=== PATIENT | male | born 1935 | race Caucasian/White ===

== ENCOUNTER 2017-03-09 14:50 | Emergency (ER) | payer OTHER, MEDICARE, BC ==
[~2017-03-09] VITALS: Ht 170.2 cm; Wt 66.7 kg
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
[2017-03-09] MEDS ORDERED: HYDROcodone/APAP 5/325MG 1 TAB TABLET PO ONE (16:00)
[2017-03-09] MEDS ORDERED: TRAM-48 PO (16:58)
[2017-03-09 17:00] VITALS: BP 137/78
== END 2017-03-09 17:12 | disposition home or self-care (01) ==
LOC: ER 14:50
DX: S22.31XA Fracture of one rib, right side, initial encounter for closed fracture (principal); G43.909 Migraine, unspecified, not intractable, without status migrainosus; I25.10 Atherosclerotic heart disease of native coronary artery without angina pectoris; F17.210 Nicotine dependence, cigarettes, uncomplicated; V89.2XXA Person injured in unspecified motor-vehicle accident, traffic, initial encounter; Y93.89 Activity, other specified; Y99.8 Other external cause status; Y92.488 Other paved roadways as the place of occurrence of the external cause
CPT/HCPCS: 70450; 71101; 72125; 99284-25

== ENCOUNTER 2017-11-09 12:23 | Inpatient (IN) | payer MEDICARE, BC ==
[~2017-11-09] VITALS: Ht 170.2 cm; Wt 62.7 kg
[2017-11-09] VITALS (14 sets, daily range): BP systolic 118–148; BP diastolic 59–70
[~2017-11-09 12:23] MED LIST: TRAM-48 PO
[2017-11-09 13:39] LABS: BASO % 1 % (0-3); EOS % 1 % (0-3); LYMPH # 0.7 x10^3/uL (1.0-4.8); LYMPH % 14 % (24-48); MEAN CORPUSCULAR HEMOGLOBIN 17 pg (25-35); MEAN CORPUSCULAR HGB CONC 29 g/dL (31-37); MEAN CORPUSCULAR VOLUME 61 fL (79-100); MONO # 0.3 x10^3/uL (0.0-1.1); MONO % 6 % (0-9); NEUT # 3.8 x10^3uL (1.8-7.7); NEUT % 79 % (31-73); PLATELET COUNT 215 x10^3/uL (140-400); RED BLOOD COUNT 2.66 x10^6/uL (4.30-5.70); RED CELL DISTRIBUTION WIDTH 20.4 % (11.5-14.5); WHITE BLOOD COUNT 4.9 x10^3/uL (4.0-11.0)
[2017-11-09 13:52] LABS: ALBUMIN 3.5 g/dL (3.4-5.0); ALBUMIN/GLOBULIN RATIO 1.1 (1.0-1.7); CALCIUM 8.4 mg/dL (8.5-10.1); CREATININE 1.1 mg/dL (0.7-1.3); GFR 64.2; HEMATOCRIT 16.1 % (39.0-53.0); HEMOGLOBIN 4.6 g/dL (13.0-17.5); POTASSIUM 4.1 mmol/L (3.5-5.1); TOTAL BILIRUBIN 0.3 mg/dL (0.2-1.0); TOTAL PROTEIN 6.7 g/dL (6.4-8.2)
[2017-11-09] MEDS ORDERED: IOHEXOL 240 MG/ML 50ML VIAL. ONE (13:58)
[2017-11-09] MEDS ORDERED: traMADol 50 MG TABLET PO PRN (14:00)
[2017-11-09] MEDS ORDERED: IOHEXOL 300 MG/ML 75 ML VIAL. IV ONE (14:30)
[2017-11-09 14:44] LABS: HYPOCHROMIA MOD; PLT ESTIMATE ADEQUATE (ADEQUATE)
[2017-11-09 14:49] LABS: ANISOCYTOSIS MOD; MICROCYTOSIS MOD
[2017-11-09 14:56] LABS: OVALOCYTES FEW; POLYCHROMASIA PRESENT
[2017-11-09 14:57] LABS: TEAR DROP CELLS FEW
[2017-11-09 14:59] LABS: TARGET CELLS OCC
[2017-11-09 15:09] LABS: STOMATOCYTES OCC
[2017-11-09 15:10] LABS: SCHISTOCYTES OCC
[2017-11-09 15:18] LABS: POIKILOCYTOSIS PRESENT
[2017-11-09] MEDS: PANTOPRAZOLE IV 80 MG in IV NORMAL SALINE 100ML 100 ML IV SCH ×2 (15:34→23:57)
[2017-11-09] MEDS: IV NORMAL SALINE 1,000ML 1,000 ML IV SCH (15:35)
[2017-11-09 15:44] LABS: BACTERIA,URINE 0 /HPF (0-FEW); BILIRUBIN,URINE NEG (NEG); CLARITY,URINE CLEAR; COLOR,URINE STRAW; GLUCOSE,URINE NEG (NEG); NITRITE,URINE NEG (NEG); RBC,URINE OCC /HPF (0-2); SQUAMOUS EPITHELIAL CELL,UR OCC /LPF; UROBILINOGEN,URINE 0.2 mg/dL (0.2 mg/dL); WBC,URINE OCC /HPF (0-4)
[2017-11-09 15:45] LABS: HYALINE CASTS, URINE FEW /HPF
[2017-11-09] MEDS ORDERED: FURO-68 PO (16:10)
[2017-11-09] MEDS ORDERED: MULT-475 PO (16:10)
[2017-11-09] MEDS ORDERED: OXYC-327 PO (16:10)
[2017-11-09] MEDS ORDERED: CETI10TA22 PO (16:10)
[2017-11-09] MEDS ORDERED: TAMS0.4C97 PO (16:10)
--- NOTE | 2017-11-09 16:53 | RAD ---
CT abdomen/pelvis with IV and oral contrast CLINICAL HISTORY: GI BLEED, ABDOMINAL PAIN COMPARISON: none TECHNIQUE: CT of the abdomen and pelvis following the administration of 75 mL of Omnipaque 300 intravenous contrast. Oral contrast was administered. Coronal and sagittal reformatted images were generated. ---PQRS compliance statement - One or more of the following individualized dose reduction techniques were utilized for this study: 1. Automated exposure control 2. Adjustment of the mA and/or kV according to patient size 3. Use of iterative reconstruction technique--- FINDINGS: Of note, exam is somewhat limited given motion artifact within the mid-lower abdomen. Dependent opacities are seen in the lung bases likely atelectasis or consolidation. Mild emphysematous changes are seen. ABDOMEN AND PELVIS: No focal liver lesion. The gallbladder is unremarkable. No intra or extrahepatic biliary ductal dilatation. The spleen is unremarkable. Nodular thickening of the left adrenal gland is seen. The right adrenal gland is unremarkable. The pancreas is unremarkable. Symmetric nephrograms. No focal renal lesion. Bilateral extrarenal pelves are seen. No hydronephrosis or hydroureter. No abdominal or pelvic lymphadenopathy. No abdominal or pelvic ascites. Colonic stool content. The appendix is normal. No abnormal small or large bowel dilatation to suggest bowel obstruction. Colonic diverticulosis is seen without evidence for acute diverticulitis. Oral contrast material makes it to the distal small bowel. The prostate is mildly enlarged measuring 5 cm in transverse dimension. Thickening of the bladder wall possibly from chronic outlet obstruction. Decreased mineral density. Visualized osseous structures are grossly unremarkable. IMPRESSION: 1. Lung base opacities, possibly atelectasis or developing consolidation. 2. No evidence of bowel obstruction. 3. Colonic diverticulosis without evidence of acute diverticulitis. 4. Thickening of the bladder wall likely from chronic outlet obstruction given enlarged prostate. 5. Evaluation for GI bleed is limited on this exam. Electronically signed by: Kushal Abel MD (11/09/2017 4:49 PM) [facility]
--- NOTE | 2017-11-09 17:59 | RAD ---
CHEST PA LATERAL History: SHORT OF AIR Comparison: PA chest March 09, 2017. Findings: The cardiomediastinal silhouette is normal. Pulmonary vasculature is normal. Linear opacities in the bilateral lung bases may be discoid atelectasis or scarring or early infiltrate. No pleural effusion or pneumothorax is seen. There is no acute bone abnormality. Diffuse demineralization. IMPRESSION: Bibasilar linear airspace opacities. Electronically signed by: Kobi Bower MD (11/09/2017 5:55 PM) [id number]
[2017-11-10] VITALS (17 sets, daily range): BP systolic 107–161; BP diastolic 43–70
[2017-11-10 00:08] LABS: HEMATOCRIT 23.8 % (39.0-53.0); HEMOGLOBIN 7.3 g/dL (13.0-17.5)
[2017-11-10] MEDS: IV NORMAL SALINE 1,000ML 1,000 ML IV SCH ×2 (04:29→20:54)
[2017-11-10] MEDS ORDERED: oxyCODONE/APAP 7.5/325 1 TAB TABLET PO PRN ×2 (06:30→09:00)
[2017-11-10 06:34] LABS: BASO % 1 % (0-3); EOS % 1 % (0-3); HEMATOCRIT 22.7 % (39.0-53.0); HEMOGLOBIN 7.1 g/dL (13.0-17.5); LYMPH % 16 % (24-48); MEAN CORPUSCULAR HEMOGLOBIN 21 pg (25-35); MEAN CORPUSCULAR HGB CONC 31 g/dL (31-37); MEAN CORPUSCULAR VOLUME 66 fL (79-100); MONO # 0.4 x10^3/uL (0.0-1.1); MONO % 6 % (0-9); NEUT # 4.9 x10^3uL (1.8-7.7); NEUT % 76 % (31-73); PLATELET COUNT 214 x10^3/uL (140-400); RED BLOOD COUNT 3.45 x10^6/uL (4.30-5.70); WHITE BLOOD COUNT 6.4 x10^3/uL (4.0-11.0)
[2017-11-10 06:45] LABS: CALCIUM 8.4 mg/dL (8.5-10.1); CREATININE 0.8 mg/dL (0.7-1.3); GFR 92.8; POTASSIUM 3.9 mmol/L (3.5-5.1)
[2017-11-10] MEDS: FUROSEMIDE 40 MG TABLET PO SCH (09:09)
[2017-11-10] MEDS: TAMSULOSIN 0.4 MG CAP.ER.24H. PO SCH (09:09)
[2017-11-10] MEDS: MULTIVITAMIN with MINERAL TABLET. PO SCH (09:09)
[2017-11-10 09:40] LABS: FECAL OB PT POSITIVE (NEG)
[2017-11-10] MEDS: SUCRALFATE 1 GM/10 ML ORAL.SUSP. PO SCH ×3 (11:15→20:54)
[2017-11-10] MEDS: LACTOBACILLUS RHAMNOSUS GG 1 CAPSULE. PO SCH ×2 (11:15→20:54)
--- NOTE | 2017-11-10 12:12 | RAD ---
Ultrasound venous Doppler INDICATION:CALF SWELLING TECHNIQUE: Grayscale, color Doppler and spectral waveform ultrasound images of the bilateral lower extremities deep veins obtained. COMPARISON: None FINDINGS: The interrogated deep veins are compressible and demonstrate evidence of blood flow with normal respiratory variation and response to augmentation. IMPRESSION: No sonographic evidence of acute DVT of the bilateral lower extremity deep veins. Electronically signed by: Francis Alonzo DO (11/10/2017 12:09 PM) [facility]
[2017-11-10 15:35] LABS: HEMATOCRIT 24.3 % (39.0-53.0); HEMOGLOBIN 7.4 g/dL (13.0-17.5); RED BLOOD COUNT 3.65 x10^6/uL (4.30-5.70); RED CELL DISTRIBUTION WIDTH 25.6 % (11.5-14.5); WHITE BLOOD COUNT 5.9 x10^3/uL (4.0-11.0)
[2017-11-10] MEDS: oxyCODONE/APAP 7.5/325 1 TAB TABLET PO PRN (21:10)
--- NOTE | 2017-11-10 21:57 | PN ---
DATE: 11/10/2017 SUBJECTIVE: An 82-year-old male came in with profound anemia. Did a rectal exam on him that was positive. OBJECTIVE: VITAL SIGNS: Basically stable, presently 114/40, respiratory rate 20, pulse 80, afebrile. GENERAL: The patient is alert and oriented. The patient states he wants to go home. The patient's hemoglobin went from 4.6 up to 7.1. Repeating that here, we will see what that does after 2 units of packed RBCs. LUNGS: Clear. CARDIOVASCULAR: Stable. ABDOMEN: Soft, nontender. The patient is not having any bowel movements. The patient was Hemoccult positive, but no melena was noted. The patient otherwise will continue on IV antibiotic therapy as his chest x-ray showed the possibility of an infiltrative process noted as well or early infiltrate. We will continue to monitor. Discussed with the , she is agreeable with the protocol and will continue to be monitored carefully. The patient also had a positive D-dimer and there is no evidence of DVT to be put on SCD protocol for his prevention of DVT. IMPRESSION: Acute gastrointestinal bleed, generalized weakness. PLAN: As above. Continue to monitor accordingly. NEEMA GARCIA MD DR: KATIANA/davey JOB#: [id number] / [id number]
[2017-11-11] VITALS (9 sets, daily range): BP systolic 123–137; BP diastolic 57–68
--- NOTE | 2017-11-11 02:07 | PN ---
DATE: 11/10/2017 SUBJECTIVE: The patient feels much better today. The patient seems to be doing overall much better. OBJECTIVE: VITAL SIGNS: The patient's blood pressure 114/43, respiratory rate 20, pulse 80, afebrile. GENERAL: The patient is alert and oriented, wanted to eat. LUNGS: The patient's lungs are clear. CARDIOVASCULAR: Stable. ABDOMEN: Soft, nontender. LABORATORY DATA: The patient's hemoglobin has remained stable and actually has gone up some to 7.4 and 24. PLAN: Continues on present drug regimen. We will repeat his H and H in the morning and make further evaluation once that has been performed. Dopplers of his legs have been negative. NEEMA GARCIA MD DR: KATIANA/davey JOB#: [id number] / [id number]
[2017-11-11 06:52] LABS: CALCIUM 8.4 mg/dL (8.5-10.1); GFR 71.7; POTASSIUM 3.9 mmol/L (3.5-5.1)
[2017-11-11 07:17] LABS: BASO # 0.1 x10^3/uL (0.0-0.2); BASO % 1 % (0-3); EOS # 0.1 x10^3/uL (0.0-0.7); EOS % 1 % (0-3); HEMOGLOBIN 7.3 g/dL (13.0-17.5); LYMPH # 0.9 x10^3/uL (1.0-4.8); LYMPH % 14 % (24-48); MEAN CORPUSCULAR HEMOGLOBIN 21 pg (25-35); MEAN CORPUSCULAR HGB CONC 30 g/dL (31-37); MEAN CORPUSCULAR VOLUME 68 fL (79-100); MONO # 0.4 x10^3/uL (0.0-1.1); MONO % 6 % (0-9); NEUT % 78 % (31-73); PLATELET COUNT 202 x10^3/uL (140-400); RED BLOOD COUNT 3.56 x10^6/uL (4.30-5.70); RED CELL DISTRIBUTION WIDTH 26.1 % (11.5-14.5); WHITE BLOOD COUNT 6.4 x10^3/uL (4.0-11.0)
[2017-11-11] MEDS: FUROSEMIDE 40 MG TABLET PO SCH (08:53)
[2017-11-11] MEDS: TAMSULOSIN 0.4 MG CAP.ER.24H. PO SCH (08:53)
[2017-11-11] MEDS: MULTIVITAMIN with MINERAL TABLET. PO SCH (08:53)
[2017-11-11] MEDS: LACTOBACILLUS RHAMNOSUS GG 1 CAPSULE. PO SCH ×2 (08:53→20:33)
[2017-11-11] MEDS: PANTOPRAZOLE 40 MG TABLET. PO SCH (08:53)
[2017-11-11] MEDS: SUCRALFATE 1 GM/10 ML ORAL.SUSP. PO SCH ×4 (08:53→20:33)
[2017-11-11] MEDS ORDERED: cefTRIAXone IV Push 1 GM VIAL. IVP SCH (10:00)
[2017-11-11] MEDS: IV NORMAL SALINE 1,000ML 1,000 ML IV SCH ×2 (12:10→19:20)
[2017-11-11] MEDS: oxyCODONE/APAP 7.5/325 1 TAB TABLET PO PRN (20:48)
--- NOTE | 2017-11-11 20:54 | PN ---
DATE: 11/11/2017 SUBJECTIVE: An 82-year-old gentleman with acute apparently GI bleed, although presently he is more stable. He is still pretty weak on his feet, receiving PT, OT. OBJECTIVE: VITAL SIGNS: The patient's blood pressure 123/68, which is somewhat of a drop from his lying position, pulse 80, afebrile. GENERAL: The patient is alert. The patient is still fairly weak, needing some assistance to walk around. LUNGS: Diminished, but clear. CARDIOVASCULAR: Regular sinus rhythm. ABDOMEN: Soft, diffuse tenderness, but no rebound or guarding. No melanotic stools noted. LABORATORY DATA: The patient's hemoglobin is stable at 7.3 and 24. PLAN: We will continue to monitor the patient accordingly and hopefully ready for discharge in the a.m. NEEMA GARCIA MD DR: KATIANA/davey JOB#: [id number] / [id number]
[2017-11-12] MEDS: oxyCODONE/APAP 7.5/325 1 TAB TABLET PO PRN (05:03)
[2017-11-12 05:30] VITALS: BP 133/64
[2017-11-12 06:46] LABS: BASO % 0 % (0-3); EOS # 0.1 x10^3/uL (0.0-0.7); EOS % 2 % (0-3); HEMATOCRIT 23.1 % (39.0-53.0); HEMOGLOBIN 7.1 g/dL (13.0-17.5); LYMPH # 0.9 x10^3/uL (1.0-4.8); LYMPH % 14 % (24-48); MEAN CORPUSCULAR HEMOGLOBIN 21 pg (25-35); MEAN CORPUSCULAR HGB CONC 31 g/dL (31-37); MEAN CORPUSCULAR VOLUME 67 fL (79-100); MONO # 0.4 x10^3/uL (0.0-1.1); MONO % 7 % (0-9); NEUT % 76 % (31-73); PLATELET COUNT 185 x10^3/uL (140-400); RED BLOOD COUNT 3.44 x10^6/uL (4.30-5.70); RED CELL DISTRIBUTION WIDTH 26.5 % (11.5-14.5); WHITE BLOOD COUNT 6.5 x10^3/uL (4.0-11.0)
[2017-11-12] MEDS: SUCRALFATE 1 GM/10 ML ORAL.SUSP. PO SCH (07:37)
[2017-11-12] MEDS: PANTOPRAZOLE 40 MG TABLET. PO SCH (07:37)
[2017-11-12] MEDS: TAMSULOSIN 0.4 MG CAP.ER.24H. PO SCH (08:19)
[2017-11-12] MEDS: LACTOBACILLUS RHAMNOSUS GG 1 CAPSULE. PO SCH (08:19)
[2017-11-12] MEDS: MULTIVITAMIN with MINERAL TABLET. PO SCH (08:19)
[2017-11-12] MEDS: FUROSEMIDE 40 MG TABLET PO SCH (08:20)
[2017-11-12] MEDS ORDERED: SUCR1ORA5 PO (09:42)
[2017-11-12] MEDS ORDERED: PANT40TA5 PO (09:42)
--- NOTE | 2017-11-12 10:02 | DS ---
DATE OF DISCHARGE: HOSPITAL COURSE: An 82-year-old gentleman came in with generalized weakness; was seen as an outpatient, refused to come in to the hospital initially. His hemoglobin when he first came in was 4.6 and 16, received 2 units packed RBCs and came up into a hemoglobin of 7.3 and 24. The patient made good progress during the rest of his hospitalization and there were no complications noted. He did have a positive Hemoccult stool, but had no acute signs of bleeding. As a result of this, the patient made good progress during the rest of his hospitalization and will be placed on iron. 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 He did have a positive D-dimer, but scans were negative. Ultrasounds were negative. It was probably related to his intestinal problems. He had no other signs. No chest pain or shortness of breath. The patient was also noted to show possible early infiltrate. He is a smoker. He has been encouraged to stop smoking obviously. IMPRESSION: Acute gastrointestinal bleed, emphysema, iron deficiency anemia secondary to acute bleed. He had O positive blood. Hypocalcemia. PLAN: The patient will be discharged, follow up in a week with me and then also with his GI specialist. NEEMA GARCIA MD DR: KATIANA/davey JOB#: [id number] / [id number]
== END 2017-11-12 10:40 | disposition home or self-care (01) | DRG 378 ==
LOC: 1 SOUTH 12:23 → ICU 19:24 → 1 SOUTH 11-11 12:04
PROVIDERS: ADMIT Family Medicine; ATTEND Family Medicine
PROC: 30233N1 Transfusion of Nonautologous Red Blood Cells into Peripheral Vein, Percutaneous Approach (ICD-10-PCS; principal; 2017-11-09)
DX: K92.2 Gastrointestinal hemorrhage, unspecified (principal); D62 Acute posthemorrhagic anemia; E83.51 Hypocalcemia; J43.9 Emphysema, unspecified; F17.200 Nicotine dependence, unspecified, uncomplicated; R91.8 Other nonspecific abnormal finding of lung field
CPT/HCPCS: 36415; 71046; 74177; 80048; 80053; 81001; 82274; 82436; 82550; 82607; 83605; 84133; 84300; 84443; 84466; 84484; 85014; 85018; 85025; 85027; 85379; 85610; 85730; 86850; 86900; 86901; 86920; 87641; 93970; C9113; J0696; J1956; P9016; Q9967; J7030

== ENCOUNTER → 2019-05-27 | Outpatient (CLI) | payer MEDICARE, BC ==
[~2019-05-27] MED LIST changes: +CETI10TA24 PO; +FURO-68 PO; +MULT-475 PO; +OXYC1TAB19 PO; +PANT40TA5 PO; +SUCR1ORA5 PO; +TAMS0.4C97 PO
[2019-05-27 11:37] LABS: BASO % 1 % (0-3); EOS # 0.1 x10^3/uL (0.0-0.7); EOS % 2 % (0-3); LYMPH # 0.8 x10^3/uL (1.0-4.8); LYMPH % 15 % (24-48); MEAN CORPUSCULAR HEMOGLOBIN 26 pg (25-35); MEAN CORPUSCULAR HGB CONC 31 g/dL (31-37); MEAN CORPUSCULAR VOLUME 84 fL (79-100); MONO # 0.4 x10^3/uL (0.0-1.1); MONO % 7 % (0-9); NEUT # 4.1 x10^3uL (1.8-7.7); NEUT % 75 % (31-73); PLATELET COUNT 226 x10^3/uL (140-400); RED BLOOD COUNT 3.82 x10^6/uL (4.30-5.70); RED CELL DISTRIBUTION WIDTH 14.6 % (11.5-14.5); WHITE BLOOD COUNT 5.4 x10^3/uL (4.0-11.0)
[2019-05-27 11:38] LABS: CALCIUM 8.6 mg/dL (8.5-10.1); GFR 71.5; POTASSIUM 4.3 mmol/L (3.5-5.1)
--- NOTE | 2019-05-27 16:20 | RAD ---
CHEST PA LATERAL Clinical indications: Enlarged lymph nodes. COMPARISON: November 09, 2017. Findings: Chronic interstitial lung disease is seen bilaterally chronic hyperinflation consistent with COPD. No new lung infiltrate or pleural effusion or pulmonary edema or lung mass or pneumothorax is seen. The heart size, pulmonary vasculature, mediastinum and both tremaine are unremarkable. The osseous structures appear intact. Impression: COPD No new radiographic abnormality is seen. Electronically signed by: Hasmukh Kimball MD (05/27/2019 4:17 PM) [facility] [place]
--- NOTE | 2019-05-27 16:31 | RAD ---
CT CHEST WO CONTRAST Indication: Enlarged lymph nodes, smoker for 65 years Technique: Noncontrast CT imaging was performed of the chest, multiplanar reconstruction images submitted. One or more of the following individualized dose reduction techniques were utilized for this examination: 1. Automated exposure control 2. Adjustment of the mA and/or kV according to patient size 3. Use of iterative reconstruction technique. Comparison: There is no previous dedicated chest CT available, correlation made with the limited visualized lung bases on CT abdomen exam November 09, 2017 Findings: There is a round noncalcified mass of the anterior, medial aspect of the right upper lobe abutting the pleural surface such as seen image 30 series 2 about 1.9 cm AP by 1.7 cm transverse by 1.9 cm cc. There is severe emphysema with upper zone predominance. There are a few other small noncalcified right upper lobe nodules, largest posteriorly 0.4 cm image 45 series 2. There are some noncalcified foci of nodularity of the right lower lobe, one of the largest image 64 series 2 about 0.9 cm. There is small focus of thickening along the minor fissure although more flattened appearance on the sagittal images. There are some small left lower lobe nodules, more discrete nodule image 56 series 2 about 0.4 cm. There are some small left upper lobe nodules, largest about 0.3 cm image 30. There is persistent areas of groundglass density of the lower lobes bilaterally, not fully included previously to accurately evaluate for degree of change. There is some density in the trachea and mainstem bronchus more likely due to mucus. There is a faint lytic focus posteriorly of the T7 vertebral body otherwise difficult to characterize etiology. There is no pleural pericardial fluid or pneumothorax. There is prominent coronary calcification. Thoracic aortic caliber is within normal limits. There are some subcentimeter mediastinal nodes, no significantly enlarged nodes identified. Largest nodes lateral to the left mainstem bronchus measures about 1 cm short axis dimension. There is heterogeneity of the thyroid gland, likely hypodense nodule posteriorly of the right 1.2 cm AP. There is a 1.7 cm exophytic focus of density arising from the superior left kidney, density measurements greater than a simple cyst about 25 Hounsfield units although size is similar. IMPRESSION: 1. There is a noncalcified right upper lobe mass concerning for neoplasm until proven otherwise for which PET CT is advised. There are multiple other small noncalcified pulmonary nodules. There is emphysema. 2. There is coronary calcification. 3. There is again exophytic focus of density of the superior left kidney, density measurements greater than simple cyst although size is similar to previous 2018 CT abdomen exam. Electronically signed by: Thuan Joshi MD (05/27/2019 4:28 PM) [id number]
== END | disposition home or self-care (01) ==
LOC: CT 09:59
PROVIDERS: ATTEND Family Medicine
DX: J84.9 Interstitial pulmonary disease, unspecified (principal); J44.9 Chronic obstructive pulmonary disease, unspecified
CPT/HCPCS: 36415; 71046; 71250; 80048; 85025

== ENCOUNTER → 2019-08-15 | Outpatient (CLI) | payer MEDICARE, BC ==
--- NOTE | 2019-08-15 09:49 | RAD ---
CT HEAD WO CONTRAST History: Right lung mass, headache Comparison: March 09, 2017 Technique: Noncontrast CT imaging was performed of the head. Exposure: One or more of the following individualized dose reduction techniques were utilized for this examination: 1. Automated exposure control 2. Adjustment of the mA and/or kV according to patient size 3. Use of iterative reconstruction technique. Findings: There is no evidence of acute intracranial hemorrhage. There is no new intra-axial mass effect or midline shift. Cash-white differentiation of the major vascular territories is maintained. There is mild generalized supratentorial involutional change. Visualized paranasal sinuses and mastoid air cells are aerated. There is some atherosclerotic calcification of the carotid siphons. Impression: 1. No acute intracranial abnormality is identified. Electronically signed by: Thuan Joshi MD (08/15/2019 9:46 AM) [id number]
--- NOTE | 2019-08-15 10:08 | RAD ---
CT CHEST WO CONTRAST Indication: Right lung mass Technique: Noncontrast CT imaging was performed of the chest, multiplanar reconstruction images submitted. One or more of the following individualized dose reduction techniques were utilized for this examination: 1. Automated exposure control 2. Adjustment of the mA and/or kV according to patient size 3. Use of iterative reconstruction technique. Comparison: May 27, 2019 Findings: There is a larger noncalcified mass of the anterior, medial right hemithorax of the right upper lobe with abutment of the pleural surface and apparent involvement of the anterior mediastinum. This measures about 3.1 cm AP by about 3 cm transverse by 3.4 cm CC versus previously about 2 cm AP by 1.8 cm transverse by 2 cm cc in similar measurement planes. Subtle 0.4 cm nodule along the right major fissure image 47 series 2 is similar. Some tiny foci of left lower lobe nodularity such as seen images 50 and 51 are similar. There are also some other scattered small left upper and left lower lobe nodules fairly similar. There is a subsolid lingular nodule about 0.9 cm image 78 series 2 somewhat larger as previously about 0.7 cm. There are also some foci of nodularity of the right lower lobe, largest about 0.7 cm image 61 overall similar. There are some areas of groundglass density lower lobes bilaterally as seen previously, also of the right middle lobe near base. There is emphysema with upper zone predominance. There are some subcentimeter mediastinal nodes as seen previously. There is prominent coronary calcification. Thoracic aortic caliber is within normal limits, scattered plaque present. There is again some heterogeneity of the thyroid gland and posterior right thyroid nodule. There is some fullness of the left adrenal gland, similar. There is again focus of exophytic density arising from the superior left kidney similar in size about 1.7 cm, density measurements again greater than a simple cyst about 22 Hounsfield units. Thoracic vertebral body stature is similar. IMPRESSION: 1. Previously seen noncalcified mass of the anteromedial right hemithorax is larger, involvement of the anterior mediastinum, again concerning for malignancy. Subsolid lingular nodule is larger. Other small pulmonary nodules are similar. 2. There is emphysema. There is coronary calcification. 3. There is again indeterminate lesion arising from the superior left kidney although similar compared with older exam. Electronically signed by: Thuan Joshi MD (08/15/2019 10:05 AM) [id number]
== END | disposition home or self-care (01) ==
LOC: CT 09:21
PROVIDERS: ATTEND Internal Medicine Pulmonary Disease
DX: R91.8 Other nonspecific abnormal finding of lung field (principal); E04.1 Nontoxic single thyroid nodule; J43.9 Emphysema, unspecified; I25.10 Atherosclerotic heart disease of native coronary artery without angina pectoris; I70.0 Atherosclerosis of aorta; N28.1 Cyst of kidney, acquired; I65.29 Occlusion and stenosis of unspecified carotid artery
CPT/HCPCS: 70450; 71250

== ENCOUNTER 2019-10-16 09:21 | Inpatient (IN) | payer MEDICARE, BC ==
[2019-10-16] VITALS (9 sets, daily range): BP systolic 108–123; BP diastolic 60–72
[~2019-10-16] VITALS: Ht 167.6 cm; Wt 60.5 kg
[2019-10-16] MEDS ORDERED: CEPH-264 PO (10:46)
--- NOTE | 2019-10-16 10:46 | PHYS DOC ---
Past History Past Medical History: CAD, Migraines Past Surgical History: Other Smoking: Cigarettes, Greater than 1 pack/day Alcohol Use: None Drug Use: None General Adult EDM: Chief Complaint: LOWER EXTREMITY SWELLING HPI: HPI: 83-year-old male presents with bilateral lower extremity redness and swelling. The swelling started within the last week. He saw his primary care physician few days ago who placed him on Lasix. He has been taking this. He presents with his daughter today with concern that the legs seem more red and the swelling is worse not better. She is concerned about cellulitis. Patient states it has been more difficult to walk yesterday and today was quite painful. He has not had a fever at home. He is very hard of hearing. Review of Systems: Review of Systems: Constitutional: Denies fever or chills Eyes: Denies change in visual acuity HENT: Denies nasal congestion or sore throat Respiratory: Denies cough or shortness of breath Cardiovascular: Denies chest pain or edema GI: Denies abdominal pain, nausea, vomiting, bloody stools or diarrhea : Denies dysuria Musculoskeletal: Denies back pain or joint pain Integument: Cellulitis of the bilateral lower extremities Neurologic: Denies headache, focal weakness or sensory changes Endocrine: Denies polyuria or polydipsia Lymphatic: Denies swollen glands Psychiatric: Denies depression or anxiety Heart Score: Risk Factors: Risk Factors: DM, Current or recent (<one month) smoker, HTN, HLP, family history of CAD, obesity. Risk Scores: Score 0 - 3: 2.5% MACE over next 6 weeks - Discharge Home Score 4 - 6: 20.3% MACE over next 6 weeks - Admit for Clinical Observation Score 7 - 10: 72.7% MACE over next 6 weeks - Early Invasive Strategies Allergies: Allergies: Allergies Coded Allergies Type Severity Reaction Last Updated Verified No Known Drug Allergies 03/09/17 No Physical Exam: PE: Constitutional: Well developed, well nourished, no acute distress, non-toxic appearance. [] HENT: Normocephalic, atraumatic, bilateral external ears normal, oropharynx moist, no oral exudates, nose normal. [] Eyes: PERRLA, EOMI, conjunctiva normal, no discharge. [] Neck: Normal range of motion, no tenderness, supple, no stridor. [] Cardiovascular:Heart rate regular rhythm, no murmur [] Lungs & Thorax: Bilateral breath sounds clear to auscultation [] Abdomen: Bowel sounds normal, soft, no tenderness, no masses, no pulsatile masses. [] Skin: Erythema, warmth, edema of the bilateral lower extremities up to the knee. Concerning for cellulitis. [] Back: No tenderness, no CVA tenderness. [] Extremities: No tenderness, no cyanosis, no clubbing, ROM intact, no edema. [] Neurologic: Alert and oriented X 3, normal motor function, normal sensory function, no focal deficits noted. [] Psychologic: Affect normal, judgement normal, mood normal. [] EKG: EKG: [] Radiology/Procedures: Radiology/Procedures: [] Course & Med Decision Making: Course & Med Decision Making Pertinent Labs and Imaging studies reviewed. (See chart for details) The patient's labs are significant for hemoglobin of 6. This is a significant change from his 10 in the chart last time. No obvious sign of active bleeding. Patient does not report bleeding or dark stools. I have ordered a Hemoccult. I have also ordered 2 units of blood. His lower legs appear cellulitic so we will give a gram of Rocephin in the emergency room. I will admit the patient to the hospital. I spoke with Dr. Rosales and he has accepted the patient for admission. [] Jairo Disclaimer: Jairo Disclaimer: This electronic medical record was generated, in whole or in part, using a voice recognition dictation system. Departure Departure: Impression: Primary Impression: Cellulitis of lower leg Additional Impression: Anemia Qualified Codes: D64.9 - Anemia, unspecified Disposition: HOME/RESIDENCE PRIOR TO ADM Condition: STABLE Referrals: NEEMA GARCIA MD (PCP) Patient Instructions: Cellulitis, [id number] Scripts Cephalexin (KEFLEX) 500 Mg Capsule 1 CAP PO TID for cellulitis for 7 Days, #21 CAP 0 Refills Prov: LANDY SALAS DO 10/16/19 Justification of Admission: Justification of Admission: Justification of Admission Dx: Yes Cellulitis: Cellulitis LANDY SALAS DO Oct 16, 2019 10:46
[2019-10-16 11:11] LABS: CALCIUM 8.5 mg/dL (8.5-10.1); CREATININE 1.2 mg/dL (0.7-1.3); POTASSIUM 4.2 mmol/L (3.5-5.1)
[2019-10-16 11:14] LABS: BASO % 1 % (0-3); EOS % 0 % (0-3); LYMPH % 22 % (24-48); MEAN CORPUSCULAR HEMOGLOBIN 23 pg (25-35); MEAN CORPUSCULAR HGB CONC 31 g/dL (31-37); MEAN CORPUSCULAR VOLUME 73 fL (79-100); MONO # 0.3 x10^3/uL (0.0-1.1); MONO % 6 % (0-9); NEUT # 3.1 x10^3uL (1.8-7.7); NEUT % 71 % (31-73); PLATELET COUNT 257 x10^3/uL (140-400); RED BLOOD COUNT 2.63 x10^6/uL (4.30-5.70); RED CELL DISTRIBUTION WIDTH 19.2 % (11.5-14.5); WHITE BLOOD COUNT 4.4 x10^3/uL (4.0-11.0)
[2019-10-16 11:16] LABS: HEMATOCRIT 19.3 % (39.0-53.0)
[2019-10-16 11:18] LABS: ALBUMIN 2.6 g/dL (3.4-5.0); ALBUMIN/GLOBULIN RATIO 0.8 (1.0-1.7); TOTAL BILIRUBIN 0.5 mg/dL (0.2-1.0)
[2019-10-16] MEDS ORDERED: IV NORMAL SALINE 50ML 50 ML ONE (11:18)
[2019-10-16] MEDS ORDERED: cefTRIAXone SODIUM 1 GM VIAL ONE (11:18)
[2019-10-16] MEDS ORDERED: ONDANSETRON PF 4 MG/2 ML VIAL. IVP PRN (12:15)
[2019-10-16 12:24] LABS: BACTERIA,URINE 0 /HPF (0-FEW); BILIRUBIN,URINE NEG (NEG); CLARITY,URINE CLEAR; COLOR,URINE AMBER; GLUCOSE,URINE NEG (NEG); HYALINE CASTS, URINE FEW /HPF; NITRITE,URINE NEG (NEG); RBC,URINE OCC /HPF (0-2); SQUAMOUS EPITHELIAL CELL,UR OCC /LPF
[2019-10-16 12:31] LABS: ANISOCYTOSIS MOD; PLT ESTIMATE ADEQUATE (ADEQUATE)
[2019-10-16 12:32] LABS: HYPOCHROMIA SLIGHT; MICROCYTOSIS SLIGHT; OVALOCYTES PRESENT; POLYCHROMASIA PRESENT; TEAR DROP CELLS OCC
[2019-10-16 12:33] LABS: POIKILOCYTOSIS PRESENT
[2019-10-16] MEDS ORDERED: diphenhydrAMINE HCL 25 MG CAPSULE PO PRN (16:45)
[2019-10-16] MEDS ORDERED: ACETAMINOPHEN 325 MG TABLET PO PRN (16:45)
--- NOTE | 2019-10-16 16:48 | NUR ---
PATIENT IS 83 Y O MALE, ADMITTED FROM ED WITH BILATERAL LOWER LEG CELLULITIS, PT TRANSFERRED TO BED WITH ASSIST X1, PT C/O WEAKNESS AND HEADACHE, PAIN IN BOTH LEGS. PATIENT HAS AN ORDER FOR BLOOD TRANSFUSION D/T GI BLEED AND HGB 6.0. PT CONSENT IS OBTAINED FOR BLOOD TRANSFUSION. PT WAS ORIENTED TO THE UNIT AND PT ROOM, PT VERBALIZED UNDERSTANDING. WILL CONTINUE TO MONITOR.
--- NOTE | 2019-10-16 16:52 | NUR ---
BLOOD TRANSFUSION STARTED AT 1635. PERIPHERAL ACCESS WITH GODD BLOOD RETURN, FLUSHED WITH NS 10ML. TUBING PRIMED WITH NS AND THEN PRIMED WITH BLOOD. VS ARE STABLE, TRANSFUSION STARTED AT 75ML/HR, PT MONITORED CLOSELY X15 MIN. TRANSFUSION INCREASED TO 125ML/HR. WILL CONTINUE TO MONITOR.
[2019-10-16] MEDS: HYDROcodone/APAP 7.5/325MG 1 TAB TABLET PO PRN (17:47)
--- NOTE | 2019-10-16 18:05 | RAD ---
CHEST AP ONLY Clinical History: Reason: lung cancer / Spl. Instructions: / History: Technique: AP view of the chest was obtained at 10/16/2019 5:25 PM. Comparison: May 27, 2019. Findings: There is a new round density near the aortic knob and there is a new round density in the mid left lung. There is new patchy opacities in the lower lungs. The pleural margins are clear. The heart and pulmonary vessels appear normal. There is widening of the mediastinum with thickening of the paratracheal stripe which was not seen previously. Impression: 1. New pulmonary nodules on the left. 2. New mediastinal lymphadenopathy. 3. Increasing basilar opacities could be lymphangitic spread of cancer. Electronically signed by: Rodger Elliott III, MD (10/16/2019 6:02 PM) [facility]
[2019-10-16] MEDS: ACETAMINOPHEN 500 MG TABLET PO PRN (19:53)
[2019-10-16] MEDS: SUCRALFATE 1 GM/10 ML ORAL.SUSP. PO SCH (19:59)
[2019-10-16] MEDS ORDERED: NON FORMULARY ITEM (Cephalexin (Keflex) 1 CAP) PO SCH (21:00)
[2019-10-16 21:13] LABS: HEMATOCRIT 21.6 % (39.0-53.0)
[2019-10-16 21:15] LABS: HEMOGLOBIN 6.9 g/dL (13.0-17.5)
[2019-10-17] VITALS (7 sets, daily range): BP systolic 116–129; BP diastolic 64–73
--- NOTE | 2019-10-17 00:15 | NUR ---
Blood transfusion started at 2205. Tubing primed with NS and then primed with blood. Transfusion started at 100ml/hr, pt monitored closely x15 minutes. No reaction noted, transfusion increased to 150ml/hr. Infusion completed at 0005. IV flushed with NS and orange cap applied.
[2019-10-17] MEDS: HYDROcodone/APAP 7.5/325MG 1 TAB TABLET PO PRN ×2 (01:03→22:20)
[2019-10-17 06:02] LABS: BASO % 0 % (0-3); EOS % 1 % (0-3); HEMATOCRIT 23.8 % (39.0-53.0); HEMOGLOBIN 7.6 g/dL (13.0-17.5); LYMPH # 0.6 x10^3/uL (1.0-4.8); LYMPH % 14 % (24-48); MEAN CORPUSCULAR HEMOGLOBIN 25 pg (25-35); MEAN CORPUSCULAR HGB CONC 32 g/dL (31-37); MEAN CORPUSCULAR VOLUME 77 fL (79-100); MONO # 0.4 x10^3/uL (0.0-1.1); MONO % 9 % (0-9); NEUT % 76 % (31-73); PLATELET COUNT 234 x10^3/uL (140-400); RED CELL DISTRIBUTION WIDTH 19.9 % (11.5-14.5)
[2019-10-17 06:09] LABS: CALCIUM 8.1 mg/dL (8.5-10.1); GFR 71.5; POTASSIUM 4.1 mmol/L (3.5-5.1)
[2019-10-17] MEDS: MULTIVITAMIN with MINERAL TABLET. PO SCH (08:12)
[2019-10-17] MEDS: TAMSULOSIN 0.4 MG CAP.ER.24H. PO SCH (08:12)
[2019-10-17] MEDS: SUCRALFATE 1 GM/10 ML ORAL.SUSP. PO SCH ×4 (08:12→20:12)
[2019-10-17] MEDS: PANTOPRAZOLE 40 MG TABLET. PO SCH (08:12)
[2019-10-17] MEDS: FUROSEMIDE 40 MG TABLET PO SCH (08:12)
[2019-10-17] MEDS: CETIRIZINE HCL 10 MG TABLET PO SCH (08:13)
[2019-10-17 08:15] LABS: FECAL OB PT NEGATIVE (NEG)
[2019-10-17] MEDS ORDERED: ZINC OXIDE 4IN X 10YD TOPICAL BANDAGE TP ONE (10:30)
--- NOTE | 2019-10-17 10:37 | RAD ---
EXAM: Bilateral lower extremity venous Doppler. HISTORY: Bilateral lower extremity pain/swelling. COMPARISON: None. FINDINGS: Grayscale and Doppler analysis of the both lower extremity deep venous systems was performed with graded compression and augmentation. The common femoral, greater saphenous, superficial femoral, popliteal and calf veins were assessed. Visualization of the calf veins was limited by patient tenderness. There is no evidence of deep venous thrombosis. There is mild subcutaneous edema distally. IMPRESSION: 1. No evidence of deep venous thrombosis. Electronically signed by: Donna Carrasco MD (10/17/2019 10:34 AM) [id number]
[2019-10-17] MEDS: oxyCODONE/APAP 7.5/325 1 TAB TABLET PO PRN (16:36)
[2019-10-17 17:06] LABS: BACTERIA,URINE 0 /HPF (0-FEW); BILIRUBIN,URINE NEG (NEG); CLARITY,URINE CLEAR; COLOR,URINE YELLOW; GLUCOSE,URINE NEG (NEG); NITRITE,URINE NEG (NEG); RBC,URINE 0 /HPF (0-2); SQUAMOUS EPITHELIAL CELL,UR OCC /LPF; UROBILINOGEN,URINE 0.2 mg/dL (0.2 mg/dL); WBC,URINE 0 /HPF (0-4)
[2019-10-18 06:00] VITALS: BP_SYST 121; BP_SYST 129; BP_DIAS 69; BP_DIAS 86
[2019-10-18] MEDS: oxyCODONE/APAP 7.5/325 1 TAB TABLET PO PRN ×2 (06:44→17:03)
[2019-10-18 07:36] LABS: BASO % 0 % (0-3); CALCIUM 8.1 mg/dL (8.5-10.1); CREATININE 0.9 mg/dL (0.7-1.3); EOS % 1 % (0-3); GFR 80.8; LYMPH # 0.6 x10^3/uL (1.0-4.8); LYMPH % 13 % (24-48); MEAN CORPUSCULAR HEMOGLOBIN 25 pg (25-35); MEAN CORPUSCULAR HGB CONC 32 g/dL (31-37); MEAN CORPUSCULAR VOLUME 77 fL (79-100); MONO # 0.3 x10^3/uL (0.0-1.1); MONO % 8 % (0-9); NEUT # 3.5 x10^3uL (1.8-7.7); NEUT % 78 % (31-73); PLATELET COUNT 221 x10^3/uL (140-400); POTASSIUM 3.7 mmol/L (3.5-5.1); RED BLOOD COUNT 3.25 x10^6/uL (4.30-5.70); WHITE BLOOD COUNT 4.5 x10^3/uL (4.0-11.0)
[2019-10-18] MEDS: SUCRALFATE 1 GM/10 ML ORAL.SUSP. PO SCH ×4 (08:03→20:11)
[2019-10-18] MEDS: TAMSULOSIN 0.4 MG CAP.ER.24H. PO SCH (08:03)
[2019-10-18] MEDS: PANTOPRAZOLE 40 MG TABLET. PO SCH (08:03)
[2019-10-18] MEDS: LACTOBACILLUS RHAMNOSUS GG 1 CAPSULE. PO SCH ×2 (08:03→20:11)
[2019-10-18] MEDS: MULTIVITAMIN with MINERAL TABLET. PO SCH (08:04)
[2019-10-18] MEDS: ACETAMINOPHEN 500 MG TABLET PO PRN (08:04)
[2019-10-18] MEDS: CETIRIZINE HCL 10 MG TABLET PO SCH (08:04)
[2019-10-18] MEDS: FUROSEMIDE 40 MG TABLET PO SCH (08:04)
[2019-10-18 11:29] VITALS: BP 98/58
[2019-10-18] MEDS: HYDROcodone/APAP 7.5/325MG 1 TAB TABLET PO PRN (12:28)
[2019-10-18 16:36] VITALS: BP 107/65
--- NOTE | 2019-10-18 16:54 | NUR ---
Nurse encouraged pt to sit up in his chair for dinner after toileting. Pt adamantly declined. Nurse explained importance of sitting in chair. Pt continued to decline.
[2019-10-18] MEDS: FERROUS SULFATE ORAL 220 MG/5 ML SOLUTION. PO SCH (16:59)
[2019-10-18 20:10] VITALS: BP 130/63
[2019-10-18 22:52] VITALS: BP 132/72
[2019-10-19] MEDS: HYDROcodone/APAP 7.5/325MG 1 TAB TABLET PO PRN ×2 (01:04→08:01)
[2019-10-19 05:38] VITALS: BP 139/67
[2019-10-19 05:50] LABS: BASO % 1 % (0-3); EOS % 1 % (0-3); HEMATOCRIT 24.1 % (39.0-53.0); HEMOGLOBIN 7.7 g/dL (13.0-17.5); LYMPH # 0.5 x10^3/uL (1.0-4.8); LYMPH % 11 % (24-48); MEAN CORPUSCULAR HEMOGLOBIN 25 pg (25-35); MEAN CORPUSCULAR HGB CONC 32 g/dL (31-37); MEAN CORPUSCULAR VOLUME 77 fL (79-100); MONO # 0.5 x10^3/uL (0.0-1.1); MONO % 10 % (0-9); NEUT # 3.5 x10^3uL (1.8-7.7); NEUT % 77 % (31-73); PLATELET COUNT 216 x10^3/uL (140-400); RED BLOOD COUNT 3.15 x10^6/uL (4.30-5.70); RED CELL DISTRIBUTION WIDTH 20.1 % (11.5-14.5); WHITE BLOOD COUNT 4.5 x10^3/uL (4.0-11.0)
[2019-10-19 05:53] LABS: CALCIUM 8.1 mg/dL (8.5-10.1); CREATININE 0.9 mg/dL (0.7-1.3); GFR 80.8; POTASSIUM 3.8 mmol/L (3.5-5.1)
[2019-10-19] MEDS: oxyCODONE/APAP 7.5/325 1 TAB TABLET PO PRN (06:22)
[2019-10-19] MEDS: SUCRALFATE 1 GM/10 ML ORAL.SUSP. PO SCH ×2 (07:59→11:45)
[2019-10-19] MEDS: FERROUS SULFATE ORAL 220 MG/5 ML SOLUTION. PO SCH (07:59)
[2019-10-19] MEDS: PANTOPRAZOLE 40 MG TABLET. PO SCH (07:59)
[2019-10-19] MEDS: CETIRIZINE HCL 10 MG TABLET PO SCH (08:00)
[2019-10-19] MEDS: TAMSULOSIN 0.4 MG CAP.ER.24H. PO SCH (08:00)
[2019-10-19] MEDS: FUROSEMIDE 40 MG TABLET PO SCH (08:00)
[2019-10-19] MEDS ORDERED: FERR325T14 PO (08:28)
[2019-10-19] MEDS: LACTOBACILLUS RHAMNOSUS GG 1 CAPSULE. PO SCH (09:00)
[2019-10-19] MEDS: MULTIVITAMIN with MINERAL TABLET. PO SCH (09:00)
--- NOTE | 2019-10-19 10:05 | DS ---
DATE OF DISCHARGE: HOSPITAL COURSE: An 83-year-old male who came in with severe anemia, hemoglobin down in the 6 range. The patient received 2 units of packed RBCs and he felt much better, although his hemoglobin has dropped a little bit this morning from 8 to 7.7. The patient demands to be discharged. His D-dimer was elevated, but his blood has been so thin that it would be hard to explain. Venous Dopplers were negative. He is not short of breath. Of course, he does have that lung tumor. He is at 96% oxygen saturation, blood pressure 140/70, pulse in the 90s. He was anemic. His blood pressure at one time was 98/58, but has come up to last one is as noted above otherwise. The patient's lungs are diminished. The patient obviously has been losing weight. Apparently, he has seen Pulmonology and Oncology for possible if he wants anything done with that situation with his lung cancer. Otherwise, he will continue to be monitored carefully and will be discharged home. IMPRESSION: Iron deficiency anemia, lung cancer, generalized weakness and deconditioning secondary to cancer. NEEMA GARCIA MD DR: KATIANA/davey JOB#: [id number] / [id number]
--- NOTE | 2019-10-19 10:05 | PN ---
DATE: An 83-year-old male in with acute blood loss. His hemoglobin was as low as 6; after 2 units, it went up to 7.6 and has remained up, it has gone up to 8 this morning and 25, white count 4.5. The patient's chemistries were basically unremarkable. Sodium has come back up to 131. BUN and creatinine of 9 and 0.9. Blood sugars up and down. Iron is low at 12. He is very somnolent, have to wake him up. The patient's urine was unremarkable. Stool actually was Hemoccult negative. The patient's lower extremities, no evidence of DVT. The patient will continue to be monitored carefully, make further evaluation for his anemia, generalized weakness, start him on PT, OT and make further evaluation on that gentleman as indicated. IMPRESSION: Lung cancer, possible iron deficiency anemia, slight change in mental status probably from the lung cancer. He does see a stores laborer for that. NEEMA GARCIA MD DR: KATIANA/davey JOB#: [id number] / [id number]
--- NOTE | 2019-10-19 13:35 | NUR ---
PATIENT IS DISCHARGED HOME, VS ARE STABLE, DISCHARGED INSTRUCTION DISCUSSED WITH FAMILY MEMBER, SPOUSE AND DAUGHTER VERBALIZED UNDERSTANDING.PATIENT LEFT ROOM VIA W/C ACCOMPANIED BY THIS RN. PATIENT TAKEN HOME BY FAMILY MEMBER VIA PERSONAL VEHICLE.
== END 2019-10-19 13:35 | disposition home or self-care (01) | DRG 180 ==
LOC: ER 09:21 → 1 SOUTH 13:06
PROVIDERS: ADMIT Family Medicine; ATTEND Family Medicine
PROC: 30233N1 Transfusion of Nonautologous Red Blood Cells into Peripheral Vein, Percutaneous Approach (ICD-10-PCS; principal; 2019-10-16)
DX: C34.91 Malignant neoplasm of unspecified part of right bronchus or lung (principal); E43 Unspecified severe protein-calorie malnutrition; D62 Acute posthemorrhagic anemia; L03.116 Cellulitis of left lower limb; L03.115 Cellulitis of right lower limb; D50.9 Iron deficiency anemia, unspecified; H91.90 Unspecified hearing loss, unspecified ear; I25.10 Atherosclerotic heart disease of native coronary artery without angina pectoris; Z87.891 Personal history of nicotine dependence; G43.909 Migraine, unspecified, not intractable, without status migrainosus; Z88.8 Allergy status to other drugs, medicaments and biological substances; Z79.899 Other long term (current) drug therapy; Z95.5 Presence of coronary angioplasty implant and graft; R58 Hemorrhage, not elsewhere classified
CPT/HCPCS: 36415; 71045; 80048; 80053; 81001; 82274; 83540; 83550; 83880; 85014; 85018; 85025; 85379; 86850; 86900; 86901; 86920; 93970; 96365; 96366; J0696; P9016; Q0163; 99285-25